=== PATIENT | male | born 1995 | race African-American/Black ===

== ENCOUNTER 2020-03-14 17:33 | Emergency (ER) | payer MEDICAID ==
[~2020-03-14] VITALS: Ht 180.3 cm; Wt 68.0 kg
[2020-03-14 17:47] VITALS: BP 130/82
[2020-03-14] MEDS ORDERED: PENICILLIN G BENZ 1200000 UNITS/2 ML SYRG IM ONE (18:15)
== END 2020-03-14 20:35 | disposition left against medical advice (07) ==
LOC: ER 17:33
DX: Z20.2 Contact with and (suspected) exposure to infections with a predominantly sexual mode of transmission (principal)

== ENCOUNTER 2023-09-26 00:11 | Emergency (ER) | payer MEDICAID ==
[~2023-09-26] VITALS: Ht 180.3 cm; Wt 68.4 kg
[2023-09-26 02:05] LABS: Basophils # (auto) 0 10 ^3/uL (0-0.2); Basophils % (auto) 0.4 % (0.0-2.0); Eosinophils # (auto) 0.2 10 ^3/uL (0-0.8); Hemoglobin 17.4 g/dL (13.5-17.5); Lymphocytes # (auto) 1.7 10 ^3/uL (0.4-5.4); Mean Corpuscular Hemoglobin 27.8 pg (28.0-32.0); Mean Corpuscular Hgb Conc. 33.5 g/dL (32.0-36.0); Monocytes % (auto) 14.1 % (0.0-12.0); Neutrophils # (auto) 4.4 10 ^3/uL (1.6-8.6); Neutrophils % (auto) 59.5 % (37.0-80.0); Nucleated Red Blood Cells % 0.9 %; Red Blood Cells 6.27 10^6/uL (4.5-5.90); Red Cell Distribution Width 14.3 % (11.8-14.3); White Blood Cell 7.4 10^3/uL (4.4-10.8)
[2023-09-26 02:24] LABS: Alanine Aminotransferase 19 U/L (7-40); Albumin 4.6 g/dL (3.2-4.8); Alkaline Phosphatase 70 U/L (46-116); Anion Gap 3 (5-15); Aspartate Aminotransferase 18 U/L (13-40); Bilirubin, Total 0.8 mg/dL (0.2-1.0); Blood Urea Nitrogen 11 mg/dL (9-23); Calcium 9.7 mg/dL (8.7-10.4); Carbon Dioxide 32 mmol/L (20-30); Chloride 98 mmol/L (98-107); Glucose 83 mg/dL (74-106); Lipase 27 U/L (12-53); Potassium 3.8 mmol/L (3.5-5.1); Sodium 133 mmol/L (136-145); Total Protein 7.6 g/dL (5.7-8.2)
[2023-09-26] MEDS ORDERED: ZOFR4T PO (03:12)
[2023-09-26 03:21] VITALS: BP 107/77; PULSE 100; RESP 17; TEMP 98.3; O2SAT 98
== END 2023-09-26 03:23 | disposition home or self-care (01) ==
LOC: ER 00:11
DX: R11.2 Nausea with vomiting, unspecified (principal)
CPT/HCPCS: 36415; 80053; 83690; 85025

== ENCOUNTER 2025-03-03 09:14 | Emergency (ER) | payer MEDICAID ==
[~2025-03-03] VITALS: Ht 182.9 cm; Wt 75.0 kg
[~2025-03-03 09:14] MED LIST: ZOFR4T PO
[2025-03-03 09:15] VITALS: BP 106/72; PULSE 144; RESP 16; TEMP 98.3; O2SAT 98
--- NOTE | 2025-03-03 09:53 | ED.PDOC ---
General HPI Comments 29 y.o male presents to the ED for a chief complaint of right sided testicle pain that started 3 days ago. Patient states sudden onset of pain with no recent trauma or urinary retention. Patient is able to ambulate without pain worsening however when jumping, pain exacerbates. He denies any penile discharge, dysuria, fever, chills. Chief Complaint: Testicle Pain Time Seen by MD: 09:39 Reviewed notes: Nurses Notes, Medications, Allergies Allergies: Coded Allergies: NO KNOWN ALLERGIES (Unverified , 09/26/23) Home Meds Active Scripts Amoxicillin Trihydrate (Amoxicillin) 500 Mg Tab, 1 TAB PO TID for 5 Days, #15 TAB Prov:ALEJANDRO CORTEZ MD 03/03/25 Ondansetron Odt 4MG Tab (ZOFRAN PO) 4 Mg Tb, 4 MG PO Q6HPRN PRN, #20 TAB ODT TAB-DISSOLVE IN MOUTH, THEN SWALLOW Prov:OSCAR BARRON DO 09/26/23 Information Source: Patient Mode of Arrival: Ambulatory Severity: Moderate Timing: Days (3) Duration: Since onset Onset: Spontaneous Symptoms: None History of: None Location male: R Scrotum Modifying factors: None associated signs and symptoms: Other Past Medical History PAST MEDICAL HISTORY: Denies Surgical History: Denies all surgeries Family History Family History: Unknown Social History Smoker: Cigarettes Alcohol: Occasionally Drugs: Marijuana Lives In: Home Constitutional: denies: chills, diaphoresis, fatigue, fever, malaise, sweats, weakness, others EENTM: denies: blurred vision, double vision, ear bleeding, ear discharge, ear drainage, ear pain, ear ringing, eye pain, eye redness, hearing loss, mouth trini n, mouth swelling, nasal discharge, nose bleeding, nose congestion, nose pain, photophobia, tearing, throat pain, throat swelling, voice changes, others Respiratory: denies: cough, hemoptysis, orthopnea, SOB at rest, shortness of breath, SOB with excertion, stridor, wheezing, others Cardiovascular: denies: chest pain, dizzy spells, diaphoresis, Dyspnea on exertion, edema, irregular heart beat, left arm pain, lightheadedness, palpitations, PND, syncope, others Gastrointestinal: denies: abdomen distended, abdominal pain, blood streaked bowels, constipated, diarrhea, dysphagia, difficulty swallowing, hematemesis, melena, nausea, poor appetite, poor fluid intake, rectal bleeding, rectal pain, vomiting, others Genitourinary: reports: testicle pain; denies: burning, dysuria, flank pain, frequency, hematuria, incontinence, penile discharge, penile sore, pain, testicle swelling, urgency, others Neurological: denies: dizziness, fainting, headache, left sided numbness, left sided weakness, numbness, paresthesia, pre-existing deficit, right sided numbness, right sided weakness, seizure, speech problems, tingling, tremors, weakness, others Musculoskeletal: denies: back pain, gout, joint pain, joint swelling, muscle pain, muscle stiffness, neck pain, others Integumetry: denies: bruises, change in color, change in hair/nails, dryness, laceration, lesions, lumps, rash, wounds, others Allergic/Immunocompromised: denies: Difficulty Healing, Frequent Infections, Hives, Itching, others Hematologic/Lymphatic: denies: anemia, blood clots, easy bleeding, easy bruising, swollen glands, others Endocrine: denies: excessive hunger, excessive sweating, excessive thirst, excessive urination, flushing, intolerance to cold, intolerance to heat, unexplained weight gain, unexplained weight loss, others Psychiatric: denies: anxiety, bipolar disorder, depression, hopeless, panic disorder, schizophrenia, sleepless, suicidal, others All Other Systems: Reviewed and Negative Physical Exam General Appearance: Moderate Distress HEENT: Normal ENT Inspection, Pharynx Normal, TMs Normal Neck: Full Range of Motion, Non-Tender, Normal, Normal Inspection Respiratory: Chest Non-Tender, Lungs Clear, No Accessory Muscle Use, No Respiratory Distress, Normal Breath Sounds Cardiovascular: No Edema, No JVD, No Murmur, No Gallop, Normal Peripheral Pulses, Regular Rate/Rhythm Breast Exam: Deferred Gastrointestinal: No Organomegaly, Non Tender, No Pulsatile Mass, Normal Bowel Sounds, Soft Genitalia: Deferred Pelvic: Deferred Rectal: Deferred Extremities: No calf tenderness, Normal capillary refill, Normal inspection, Normal range of motion, Non-tender, No pedal edema Musculoskeletal : Apperance: Normal Neurologic: Alert, quantitative developer II-XII nml as Tested, No Motor Deficits, Normal Affect, Normal Mood, No Sensory Deficits Cerebellar Function: Normal Reflexes: Normal Skin: Dry, Normal Color, Warm Peripheral Pulses: 3+ Radial (R), 3+ Radial (L) Lymphatic: No Adenopathy Was a procedure done? Was a procedure done?: No Differential Diagnosis Kidney stone (Female): N/A Penile/Scrotal: Epidiymitis, Phimosis, Hydrocele, Testicular Torsion X-Ray, Labs, Meds, VS Vital Signs Date Time Temp Pulse Resp B/P (MAP) Pulse Ox O2 Delivery O2 Flow Rate FiO2 03/03/25 09:15 98.3 144 16 106/72 98 98.3 [place] [address] Ph: [phone] DIAGNOSTIC IMAGING Diagnostic Imaging Report : [id number] Signed PATIENT: DELMI MIRANDA ACCT: [id number] UNIT: [id number] : 1995 LOC: ER ROOM / BED: / AGE / SEX: 29 / M ADM STATUS: REG ER SERVICE 8 ORDERING PHYSICIAN: ALEJANDRO CORTEZ MD PROCEDURE(s): TESUS - TESTICULAR ULTRASOUND REASON: RT PAIN ORDER NUMBER(s): [id number], ACCESSION NUMBER(s): [id number] CLINICAL INFORMATION: Right-sided pain. TECHNIQUE: Grayscale sonographic imaging of the testicles and scrotal contents was performed , assisted by color doppler technique. Duplex doppler ultrasound of both testicles was performed. COMPARISON: None FINDINGS: The right testicle measures 3.8 x 2.1 x 2.7 cm, within normal limits. Unremarkable echogenicity of the right testicle. Arterial and venous blood flow demonstrated. There is a right epididymal cyst measuring up to 0.9 cm. There is a complex heterogeneous area at the epididymal tail with increased vascular flow, possible epididymitis in the appropriate clinical setting. Small right hydrocele. No hydrocele or varicocele. The left testicle measures 3.8 x 2.0 x 2.5 cm, within normal limits. Unremarkable echogenicity of the left testicle. Arterial and venous blood flow demonstrated. Unremarkable epididymis. No hydrocele or varicocele. IMPRESSION: 1. No sonographic evidence of testicular torsion. 2. Heterogeneous area near the right epididymal tail with increased vascular flow, suspected focal area of epididymitis in the appropriate clinical setting other etiologies, including mass associated with the epididymal tail would be less likely but not completely excluded in the appropriate clinical setting. Correlate with clinical findings. 3. Small right hydrocele. 4. Right epididymal head cyst measures up to 0.9 cm. Patient alert. Came in for testicular pain. Ultrasound reviewed does not show any acute process. Vitals stable. Answering all questions. Ambulating. Possible epididymitis. Was given prescription of amoxicillin antibiotic Motrin. Explained to the patient. Was told to follow up with his primary care physician. Was told to come back if there is any problem. Time of 1ST Reevaluation: 09:50 Reevaluation 1ST: Unchanged Patient Education/Counseling: Diagnosis, Treatment, Prognosis Family Education/Counseling: No Family Present SEPSIS Sepsis Screen Date sepsis recognized/suspect: Mar 03, 2025 Time Sepsis recognized/suspect: 913 Recent Procedure: No On Antibiotic Therapy: No Respiratory Rate >20: No Heart Rate >90: Yes Temp<36 C (96.8 F) or >38.3 C: No SBP <90 or MAP <65 mmHG: No New Acute Mental Status Change: No Is the patient on CPAP, BIPAP,: No Physician Orders Electrocardigram (03/03/25 09:29) Testicular Ultrasound (03/03/25 09:29) Urinalysis (03/03/25 09:29) Vital Signs Date Time Temp Pulse Resp B/P (MAP) Pulse Ox O2 Delivery O2 Flow Rate FiO2 03/03/25 09:15 98.3 144 16 106/72 98 98.3 Departure 1 Departure Time of Disposition: 13:33 Impression: Primary Impression: Epididymitis Disposition: 01 HOME / SELF CARE / HOMELESS Condition: Good e-Prescriptions Amoxicillin Trihydrate (Amoxicillin) 500 Mg Tab 1 TAB PO TID for 5 Days, #15 TAB Prov: ALEJANDRO CORTEZ MD 03/03/25 Discharged With: Self Critical Care Note Critical Care Time?: No Stability Stability form required: No I personally scribed for ALEJANDRO CORTEZ MD ([email or web address]) on 03/03/25 at 09:53. Electronically submitted by Anita Lynne ([facility]). I personally scribed for ALEJANDRO CORTEZ MD ([email or web address]) on 03/03/25 at 11:10. Electronically submitted by April Hayes ([facility]). ALEJANDRO CORTEZ MD Mar 03, 2025 09:53
--- NOTE | 2025-03-03 11:00 | DVH ---
CLINICAL INFORMATION: Right-sided pain. TECHNIQUE: Grayscale sonographic imaging of the testicles and scrotal contents was performed , orion james by color doppler technique. Duplex doppler ultrasound of both testicles was performed. COMPARISON: None FINDINGS: The right testicle measures 3.8 x 2.1 x 2.7 cm, within normal limits. Unremarkable echogenicity of th e right testicle. Arterial and venous blood flow demonstrated. There is a right epididymal cyst libby suring up to 0.9 cm. There is a complex heterogeneous area at the epididymal tail with increased vas cular flow, possible epididymitis in the appropriate clinical setting. Small right hydrocele. No hydr ocele or varicocele. The left testicle measures 3.8 x 2.0 x 2.5 cm, within normal limits. Unremarkable echogenicity of the left testicle. Arterial and venous blood flow demonstrated. Unremarkable epididymis. No hydrocele or varicocele. IMPRESSION: 1. No sonographic evidence of testicular torsion. 2. Heterogeneous area near the right epididymal tail with increased vascular flow, suspected focal ar ea of epididymitis in the appropriate clinical setting other etiologies, including mass associated wi th the epididymal tail would be less likely but not completely excluded in the appropriate clinical s etting. Correlate with clinical findings. 3. Small right hydrocele. 4. Right epididymal head cyst measures up to 0.9 cm.
[2025-03-03 13:34] LABS: Urine Protein, UAD TRACE (Negative)
[2025-03-03] MEDS ORDERED: AMOX500T3 PO (13:34)
== END 2025-03-03 13:35 | disposition left against medical advice (07) ==
LOC: ER 09:14
DX: N45.1 Epididymitis (principal); F17.210 Nicotine dependence, cigarettes, uncomplicated
CPT/HCPCS: 76870; 81001